=== PATIENT | female | born 1970 | race Caucasian/White ===

== ENCOUNTER → 2024-09-17 06:34 | Day surgery (SDC) | payer BC, SELFPAY | LOC: GI 06:34 | PROVIDERS: ATTENDING PHYSICIAN Internal Medicine Gastroenterology | DX: D12.4 Benign neoplasm of descending colon (principal); Z86.0101 Personal history of adenomatous and serrated colon polyps; K64.8 Other hemorrhoids; Z80.0 Family history of malignant neoplasm of digestive organs; Z83.719 Family history of colon polyps, unspecified | CPT/HCPCS: 45385; 88305 ==

== ENCOUNTER → 2024-12-22 12:15 | Outpatient (REF) | payer BC, SELFPAY | LOC: HWWDC 12:15 | PROVIDERS: ATTENDING PHYSICIAN Family Medicine | DX: Z12.31 Encounter for screening mammogram for malignant neoplasm of breast (principal) | CPT/HCPCS: 77063; 77067 ==